=== PATIENT | female | born 1955 | race Asian ===

== ENCOUNTER → 2019-04-29 | Outpatient (CLI) | payer BC ==
[2019-04-30 14:23] LABS: Stool Occult Bld Immuno 1 Negative (NEGATIVE); Stool Occult Bld Immuno 2 Negative (NEGATIVE)
== END ==
LOC: LAB EV 10:00
PROVIDERS: Internal Medicine Gastroenterology
DX: Z12.11 Encounter for screening for malignant neoplasm of colon (principal); R05 Cough
CPT/HCPCS: 82274

== ENCOUNTER 2021-05-11 08:09 | Day surgery (SDC) | payer BC ==
[~2021-05-11] VITALS: Ht 165.1 cm; Wt 50.9 kg
== END 2021-05-11 10:16 | disposition home or self-care (01) ==
LOC: ORSCSDS 08:09
PROVIDERS: Internal Medicine Gastroenterology
PROC: 0DB58ZX Excision of Esophagus, Via Natural or Artificial Opening Endoscopic, Diagnostic (ICD-10-PCS; principal; 2021-05-11 09:00)
PROC: 0DBL8ZX Excision of Transverse Colon, Via Natural or Artificial Opening Endoscopic, Diagnostic (ICD-10-PCS; principal; 2021-05-11 09:00)
PROC: 0DB78ZX Excision of Stomach, Pylorus, Via Natural or Artificial Opening Endoscopic, Diagnostic (ICD-10-PCS; principal; 2021-05-11 09:00)
DX: K21.9 Gastro-esophageal reflux disease without esophagitis (principal); Z12.11 Encounter for screening for malignant neoplasm of colon; K63.5 Polyp of colon; K29.70 Gastritis, unspecified, without bleeding; B96.81 Helicobacter pylori [H. pylori] as the cause of diseases classified elsewhere
CPT/HCPCS: 88305; 88342; J2704

== ENCOUNTER → 2022-03-25 | Outpatient (CLI) | payer BC | LOC: LAB 08:04 → LAB SHORT 08:04 | DX: N39.0 Urinary tract infection, site not specified (principal) | CPT/HCPCS: 87077; 87086; 87186 ==

== ENCOUNTER → 2024-12-14 | Outpatient (CLI) | payer OTHER | LOC: LAB SHORT 08:15 → LAB 08:15 | DX: Z86.19 Personal history of other infectious and parasitic diseases (principal) | CPT/HCPCS: 87338 ==